=== PATIENT | female | born 1950 | race Caucasian/White ===

== ENCOUNTER 2018-08-06 10:24 | Day surgery (SDC) | payer MEDICARE, OTHER, SELFPAY ==
--- NOTE | 2018-08-06 | PATH_ITS ---
[facility] Accession Number: [id number] . 01 Material submitted: . DESCENDING COLON POLYP . 02 Diagnosis: Descending Colon, Polyp, Biopsy: Hyperplastic polyp. MRV/08/08/2018 . 02 Electronically signed: . Shira Pantoja MD, Pathologist NPI- [id number] . 01 Gross description: . Received one formalin-filled container labeled with the patient's name and labeled descending colon polyp. The specimen consists of a 0.5 cm portion of tissue. Entirely submitted in one cassette. [place] [id number] /[facility] . 02 Pathologist provided ICD-10: K63.5 . 02 CPT . 053862 Performed at: 01 [facility] [address] [id number] MD Surendra Lima MD Phone: [phone] Performed at: 02 [facility] [address] [place], [place] [id number] MD Shira Pantoja MD Phone: [phone]
[2018-08-06 10:44] VITALS: BP 151/84; PULSE 90; RESP 16; TEMP 37.3; O2SAT 100; BMI 22.9
[2018-08-06] MEDS: SODIUM CHLORIDE 0.9% 1,000 ML 42 ML IV (11:04)
--- NOTE | 2018-08-06 11:30 | PM.HP.1 ---
History of Present Illness Date Patient Seen: 08/06/18 Time Patient Seen: 11:30 Chief complaint: [id number] Colonoscopy Narrative: Screening for colorectal cancer Patient History Family & Social History Social History: household members friend(s) Meds Home Medications Medication Instructions Recorded Confirmed Type No Known Home Medications 08/06/18 08/06/18 History Allergies Allergy/AdvReac Type Severity Reaction Status Date / Time No Known Drug Allergies Allergy Verified 08/06/18 10:41 Exam Vital Signs (past 8 hours): - 08/06/18 10:44 Temperature 99.1 F Pulse Rate 90 Respiratory Rate 16 Blood Pressure 151/84 H Pulse Oximetry 100 Oxygen Delivery Method Room Air Narrative Exam Narrative: Oropharynx free of lesions Chest clear to auscultation percussion Cardiac exam reveals no S3 or murmur Assessment & Plan Plan: Assessment/Plan Narrative: Screening for colorectal cancer with colonoscopy. Last colonoscopy over 12 years ago. Risks, benefits, alternatives have been explained.
--- NOTE | 2018-08-06 11:31 | PM.OP.ENDO ---
Operative Date/Time/Diagnoses Date of procedure: 08/06/18 Time of procedure: 11:31 Pre-op diagnosis: See indication and findings Procedure & Clinicians Study performed: Colonoscopy Same procedure as scheduled: Yes Indications: Screening Surgeon: Deepak Burton Procedure Notes Procedure in detail: After informed consent was obtained the patient was placed in the left lateral decubitus position. The video colonoscope was introduced the rectum and slowly advanced to cecum. On slow withdrawal mucosa was carefully examined. The scope was removed. The patient tolerated the procedure well. Blood loss none Complications none Sedation Total sedation time 22 min Versed 9 mg fentanyl 150 mcg IV titration findings 1. 5 mm polyp in the descending colon Jumbo biopsy removed completely 2. scattered sigmoid diverticulosis 3. Otherwise negative colonoscopy to cecum This will almost certainly be an adenomatous polyp and she will need follow-up colonoscopy in 5 years. cc: Dr. Murphy
[2018-08-06] MEDS: fentaNYL 250 MCG/5 ML INJ IV (12:03)
[2018-08-06] MEDS: MIDAZOLAM 5 MG/5 ML VIAL IV (12:03)
[2018-08-06 12:07] VITALS: BP 121/79; PULSE 82; RESP 19; TEMP 36.5; O2SAT 98
[2018-08-06 12:12] VITALS: BP 111/66; PULSE 73; RESP 16; O2SAT 96
[2018-08-06 12:17] VITALS: BP 145/67; PULSE 86; RESP 13; TEMP 36.6; O2SAT 97
[2018-08-06 12:23] VITALS: BP 119/71; PULSE 78; RESP 15; TEMP 36.2; O2SAT 98
== END 2018-08-06 12:38 ==
LOC: ENDO 10:29
PROVIDERS: Family Provider Internal Medicine; PCP Internal Medicine; Visit Provider Internal Medicine Gastroenterology
PROC: 0DJD8ZZ Inspection of Lower Intestinal Tract, Via Natural or Artificial Opening Endoscopic (ICD-10-PCS; CPT 45378; principal; 2018-08-06 11:30)
DX: Z12.11 Encounter for screening for malignant neoplasm of colon (principal); K57.30 Diverticulosis of large intestine without perforation or abscess without bleeding; K63.5 Polyp of colon
CPT/HCPCS: 45380; 88305; J2250; J3010

== ENCOUNTER → 2019-01-27 11:39 | Outpatient (CLI) | payer MEDICARE, OTHER, SELFPAY ==
--- NOTE | 2019-01-27 | DI.MG.S_ITS ---
BILATERAL DIGITAL SCREENING MAMMOGRAM 3D/2D WITH CAD: 01/27/2019 CLINICAL: Routine screening. Comparison is made to exams dated: 11/11/2017 mammogram, 10/25/2016 mammogram, and 10/25/2015 mammogram - [facility]. The tissue of both breasts is heterogeneously dense. This may lower the sensitivity of mammography. Current study was also evaluated with a Computer Aided Detection (CAD) system. No significant masses, calcifications, or other findings are seen in either breast. There has been no significant interval change. IMPRESSION: NEGATIVE There is no mammographic evidence of malignancy. A 1 year screening mammogram is recommended. This exam was interpreted at Station ID: [id number]. NOTE: For mammograms, a report in lay terms will be sent to the patient. Approximately 15% of breast malignancies will not be visualized mammographically. In the management of a palpable breast mass, a negative mammogram must not discourage biopsy of a clinically suspicious lesion. Electronically Signed By: Evette epstein/jaden:01/27/2019 16:19:00 letter sent: Normal Exam ACR BI-RADS Category 1: Negative 3341F
== END ==
PROVIDERS: PCP Internal Medicine; Visit Provider Internal Medicine
DX: Z12.31 Encounter for screening mammogram for malignant neoplasm of breast (principal)
CPT/HCPCS: 77063; 77067

== ENCOUNTER → 2019-03-09 14:49 | Outpatient (CLI) | payer MEDICARE, OTHER, SELFPAY ==
--- NOTE | 2019-03-09 | DI.MRI.S_ITS ---
PROCEDURE: MR KNEE RT WO CON INDICATIONS: Right knee pain. Internal derangement TECHNIQUE: Noncontrast sagittal PD fast spin echo and T2 fast spin echo with fat saturation, sagittal 3-D FLASH with fat saturation; coronal T1 spin echo and PD fast spin echo with fat saturation, and axial PD fast spin echo with fat saturation through the knee. COMPARISON: None. FINDINGS: Image quality: Excellent. Menisci: Medial meniscus is intact. Linear horizontally oriented high T2 signal intensity traverses the lateral meniscal body and anterior horn. There is a para meniscal cyst laterally measuring 18 mm craniocaudal by 45 mm whitney-posterior. Cruciate ligaments: The anterior and posterior cruciate ligaments appear intact. Medial structures: The medial collateral ligament appears intact. Visualized portions of the pes anserinus tendons appear normal. No abnormal bursal fluid. Lateral structures: The lateral collateral ligament, long and short heads of the biceps femoris tendon appear intact. The popliteus tendon appears normal. Iliotibial band appears normal. Anterior structures: The quadriceps and patellar tendons appear intact. Patellar alignment is normal. No femoral trochlear dysplasia or ventral trochlear prominence. No edema in the infrapatellar fat pad. Bones and cartilage: No bone marrow contusions or fractures. Mild diffuse articular cartilage loss overlies the weightbearing aspects of the medial femoral condyle and medial tibial plateau. Articular cartilage fibrillation overlies the lateral patellar facet. Joint space: There is physiologic knee joint fluid. Small Hartley's cyst. Normal appearing synovial plicae are incidentally noted. IMPRESSION: 1. Lateral meniscal tear. 2. Medial and patellofemoral compartment articular cartilage loss. 3. Small Hartley's cyst. Dictated by: Lexie Mosher M.D. on 03/09/2019 at 16:19 Approved by: Lexie Mosher M.D. on 03/09/2019 at 16:22
== END ==
PROVIDERS: PCP Internal Medicine; Visit Provider Orthopaedic Surgery
DX: M25.561 Pain in right knee (principal); S83.281A Other tear of lateral meniscus, current injury, right knee, initial encounter; M71.21 Synovial cyst of popliteal space [Baker], right knee
CPT/HCPCS: 73721

== ENCOUNTER → 2020-03-03 11:08 | Outpatient (CLI) | payer MEDICARE, OTHER, SELFPAY ==
--- NOTE | 2020-03-03 | DI.MG.S_ITS ---
BILATERAL DIGITAL SCREENING MAMMOGRAM 3D/2D WITH CAD: 03/03/2020 CLINICAL: Routine screening. Comparison is made to exams dated: 01/27/2019 mammogram, 11/11/2017 mammogram, 10/25/2016 mammogram, 10/25/2015 mammogram, and 10/18/2014 mammogram - [facility]. The tissue of both breasts is heterogeneously dense. This may lower the sensitivity of mammography. Current study was also evaluated with a Computer Aided Detection (CAD) system. No significant masses, calcifications, or other findings are seen in either breast. There has been no significant interval change. IMPRESSION: NEGATIVE There is no mammographic evidence of malignancy. A 1 year screening mammogram is recommended. This exam was interpreted at Station ID: [id number]. NOTE: For mammograms, a report in lay terms will be sent to the patient. Approximately 15% of breast malignancies will not be visualized mammographically. In the management of a palpable breast mass, a negative mammogram must not discourage biopsy of a clinically suspicious lesion. Electronically Signed By: Rojas foote/jaden:03/03/2020 15:20:40 letter sent: Normal Exam ACR BI-RADS Category 1: Negative 3341F
== END ==
PROVIDERS: PCP Internal Medicine; Referring Provider Internal Medicine; Visit Provider Internal Medicine
DX: Z12.31 Encounter for screening mammogram for malignant neoplasm of breast (principal)
CPT/HCPCS: 77063; 77067

== ENCOUNTER → 2020-05-25 18:55 | Outpatient (ROUT) | payer MEDICARE, OTHER, SELFPAY ==
[2020-05-25 19:33] LABS: BUN Creatinine Ratio 23.5 (6-22); Blood Urea Nitrogen 12 mg/dL (7-17); Calcium 9.9 mg/dL (8.4-10.2); Carbon Dioxide 28 mmol/L (22-32); Chloride 103 mmol/L (98-107); Cholesterol 246 mg/dL (140-199); Estimated Glomerular Filt Rate > 60.0 mL/min (>60); Glucose 113 mg/dL (80-110); HDL Cholesterol 64 mg/dL (40-60); HEMOLYSIS < 15 (0-50); Potassium 3.9 mmol/L (3.4-5.1); Triglycerides 496 mg/dL (35-150)
[2020-05-25 19:41] LABS: Prolactin 15.5 ng/mL (3.0-18.6)
[2020-05-25 20:20] LABS: Sodium 139 mmol/L (137-145)
== END ==
PROVIDERS: PCP Internal Medicine; Visit Provider Internal Medicine
DX: R03.0 Elevated blood-pressure reading, without diagnosis of hypertension (principal); E78.2 Mixed hyperlipidemia
CPT/HCPCS: 80048; 80061; 84146

== ENCOUNTER → 2021-04-25 10:25 | Outpatient (ROUT) | payer MEDICARE, OTHER, SELFPAY ==
[2021-04-25 12:09] LABS: COVID19 -Nasal RAPID Negative (Negative)
== END ==
PROVIDERS: PCP Internal Medicine; Visit Provider Physician Assistant
DX: Z20.822 Contact with and (suspected) exposure to COVID-19 (principal)
CPT/HCPCS: 87635

== ENCOUNTER → 2021-07-04 11:12 | Outpatient (CLI) | payer MEDICARE, OTHER, SELFPAY ==
--- NOTE | 2021-07-04 | DI.MG.S_ITS ---
BILATERAL DIGITAL SCREENING MAMMOGRAM 3D/2D WITH CAD: 07/04/2021 CLINICAL: Routine screening. Comparison is made to exams dated: 03/03/2020 mammogram, 01/27/2019 mammogram, and 11/11/2017 mammogram - [facility]. There are scattered fibroglandular elements in both breasts. Current study was also evaluated with a Computer Aided Detection (CAD) system. No significant masses, calcifications, or other findings are seen in either breast. There has been no significant interval change. IMPRESSION: NEGATIVE There is no mammographic evidence of malignancy. A 1 year screening mammogram is recommended. This exam was interpreted at Station ID: [id number]. NOTE: For mammograms, a report in lay terms will be sent to the patient. Approximately 15% of breast malignancies will not be visualized mammographically. In the management of a palpable breast mass, a negative mammogram must not discourage biopsy of a clinically suspicious lesion. Electronically Signed By: Yolande steele/jaden:07/04/2021 12:29:38 letter sent: Normal Exam ACR BI-RADS Category 1: Negative 3341F
== END ==
PROVIDERS: PCP Internal Medicine; Referring Provider Internal Medicine; Visit Provider Internal Medicine
DX: Z12.31 Encounter for screening mammogram for malignant neoplasm of breast (principal)
CPT/HCPCS: 77063; 77067

== ENCOUNTER → 2022-04-10 07:07 | Outpatient (CLI) | payer MEDICARE, OTHER, SELFPAY ==
[2022-04-10 08:41] LABS: Hematocrit 40.8 % (36-46); Hemoglobin 14.5 g/dL (12.0-16.0); Mean Corpuscular HGB Conc 35.5 % (30-36); Mean Corpuscular Hemoglobin 32.2 PG (26-34); Mean Corpuscular Volume 90.6 fL (80-100); Platelet Count 247 X10^3/uL (150-400); Red Blood Cell Count 4.51 X10^6/uL (4.0-5.2); Red Cell Distribution Width 13.2 % (11.6-14.8); White Blood Cell Count 6.2 X10^3/uL (4.5-11.0)
[2022-04-10 09:25] LABS: Alanine Aminotransferase 33 IU/L (<35); Albumin 4.7 g/dL (3.5-5.0); Albumin Globulin Ratio 1.8 (1.0-2.8); Alkaline Phosphatase 80 U/L (38-126); Aspartate Aminotransferase 31 IU/L (14-36); BUN Creatinine Ratio 22.7 (6-22); Bilirubin Total 0.6 mg/dL (0.2-1.3); Blood Urea Nitrogen 17 mg/dL (7-17); Calcium 9.6 mg/dL (8.4-10.2); Carbon Dioxide 27 mmol/L (22-32); Chloride 103 mmol/L (98-107); Cholesterol 241 mg/dL (140-199); Estimated Glomerular Filt Rate > 60 mL/min (>60); Globulin 2.6 g/dL (1.7-4.1); Glucose 113 mg/dL (80-110); HDL Cholesterol 68 mg/dL (40-60); HEMOLYSIS < 15 (0-50); LDL Cholesterol Calculated 153 mg/dL (<100); Potassium 4.2 mmol/L (3.4-5.1); Sodium 139 mmol/L (137-145); Total Protein 7.3 g/dL (6.3-8.2); Triglycerides 101 mg/dL (35-150)
[2022-04-10 09:36] LABS: Prolactin 18.6 ng/mL (3.0-18.6)
[2022-04-10 09:47] LABS: TSH w/ Reflex to FT4 3.66 uIU/mL (0.47-4.68)
== END ==
PROVIDERS: PCP Internal Medicine; Referring Provider Internal Medicine; Visit Provider Internal Medicine
DX: E78.2 Mixed hyperlipidemia (principal); I10 Essential (primary) hypertension; D35.2 Benign neoplasm of pituitary gland
CPT/HCPCS: 36415; 80053; 80061; 84146; 84443; 85027

== ENCOUNTER → 2022-05-07 12:41 | Outpatient (CLI) | payer MEDICARE, OTHER, SELFPAY ==
--- NOTE | 2022-05-07 12:48 | DI.RAD.S_ITS ---
PROCEDURE: XR DEXA AXIAL SKELETON INDICATIONS: Menopausal and female climacteric states COMPARISON: [facility], , DEXA AXIAL SKELETON, 10/18/2014, 13:23. FINDINGS: This blank DEXA report has been sent in error by the PACS system. The correct and complete report will be forthcoming in 1-2 days. Thank you for your patience and understanding. Dictated by: Tray Godinez M.D. on 05/07/2022 at 15:55 Approved by: Tray Godinez M.D. on 05/07/2022 at 15:55
== END ==
PROVIDERS: PCP Internal Medicine; Referring Provider Internal Medicine; Visit Provider Internal Medicine
DX: Z78.0 Asymptomatic menopausal state (principal); Z13.820 Encounter for screening for osteoporosis
CPT/HCPCS: 77080

== ENCOUNTER → 2022-07-19 12:37 | Outpatient (CLI) | payer MEDICARE, OTHER, SELFPAY ==
--- NOTE | 2022-07-19 12:39 | DI.MG.S_ITS ---
BILATERAL DIGITAL SCREENING MAMMOGRAM 3D/2D WITH CAD: 07/19/2022 CLINICAL: Routine screening. Comparison is made to exams dated: 07/04/2021 mammogram, 03/03/2020 mammogram, and 01/27/2019 mammogram - [facility]. There are scattered areas of fibroglandular density in both breasts (category b / 25%-50% glandular tissue). Current study was also evaluated with a Computer Aided Detection (CAD) system. No significant masses, calcifications, or other findings are seen in either breast. There has been no significant interval change. IMPRESSION: NEGATIVE There is no mammographic evidence of malignancy. A 1 year screening mammogram is recommended. Based on the Tyrer Cuzick model (a risk assessment model) the patient's lifetime risk is 4.3% and her 10 year risk is 2.7%. According to the ACR, ACS, and NCCN guidelines, an annual breast MRI exam along with mammogram is recommended if the patient's lifetime risk is 20% or greater. This exam was interpreted at Station ID: [id number]. NOTE: For mammograms, a report in lay terms will be sent to the patient. Approximately 15% of breast malignancies will not be visualized mammographically. In the management of a palpable breast mass, a negative mammogram must not discourage biopsy of a clinically suspicious lesion. Electronically Signed By: Tray Godinez M.D., jr/jaden:07/19/2022 13:06:01 letter sent: Normal Exam ACR BI-RADS Category 1: Negative 3341F
== END ==
PROVIDERS: PCP Internal Medicine; Referring Provider Internal Medicine; Visit Provider Internal Medicine
DX: Z12.31 Encounter for screening mammogram for malignant neoplasm of breast (principal)
CPT/HCPCS: 77063; 77067

== ENCOUNTER → 2023-05-01 11:14 | Outpatient (CLI) | payer MEDICARE, OTHER, SELFPAY ==
[2023-05-01 13:14] LABS: Aspartate Aminotransferase 34 IU/L (14-36); Blood Urea Nitrogen 13 mg/dL (7-17); Calcium 10.6 mg/dL (8.4-10.2); Carbon Dioxide 27 mmol/L (22-32); Chloride 102 mmol/L (98-107); Cholesterol 187 mg/dL (140-199); Estimated Glomerular Filt Rate > 60 mL/min (>60); Glucose 97 mg/dL (80-110); HDL Cholesterol 88 mg/dL (40-60); HEMOLYSIS < 15 (0-50); LDL Cholesterol Calculated 72 mg/dL (<100); Potassium 4.4 mmol/L (3.4-5.1); Sodium 138 mmol/L (137-145); Triglycerides 133 mg/dL (35-150)
== END ==
PROVIDERS: PCP Internal Medicine; Referring Provider Internal Medicine; Visit Provider Internal Medicine
DX: E78.2 Mixed hyperlipidemia (principal); N95.1 Menopausal and female climacteric states
CPT/HCPCS: 36415; 80048; 80061; 84450

== ENCOUNTER → 2023-07-26 13:10 | Outpatient (CLI) | payer MEDICARE, OTHER, SELFPAY ==
--- NOTE | 2023-07-26 13:13 | DI.MG.S_ITS ---
BILATERAL DIGITAL SCREENING MAMMOGRAM 3D/2D WITH CAD: 07/26/2023 CLINICAL: Routine screening. Comparison is made to exams dated: 07/19/2022 mammogram, 07/04/2021 mammogram, and 03/03/2020 mammogram - [facility]. Both breasts are heterogeneously dense, which may obscure small masses (category c / 51-75% glandular tissue). Current study was also evaluated with a Computer Aided Detection (CAD) system. No significant masses, calcifications, or other findings are seen in either breast. There has been no significant interval change. IMPRESSION: NEGATIVE There is no mammographic evidence of malignancy. A 1 year screening mammogram is recommended. Based on the Tyrer Cuzick model (a risk assessment model) the patient's lifetime risk is 6.2% and her 10 year risk is 4.2%. According to the ACR, ACS, and NCCN guidelines, an annual breast MRI exam along with mammogram is recommended if the patient's lifetime risk is 20% or greater. This exam was interpreted at Station ID: [id number]. NOTE: For mammograms, a report in lay terms will be sent to the patient. Approximately 15% of breast malignancies will not be visualized mammographically. In the management of a palpable breast mass, a negative mammogram must not discourage biopsy of a clinically suspicious lesion. Electronically Signed By: Lamine pike/jaden:07/26/2023 13:34:59 letter sent: Normal Exam ACR BI-RADS Category 1: Negative 3341F
== END ==
PROVIDERS: Referring Provider Internal Medicine; Visit Provider Internal Medicine
DX: Z12.31 Encounter for screening mammogram for malignant neoplasm of breast (principal)
CPT/HCPCS: 77063; 77067

== ENCOUNTER 2023-08-13 08:56 | Day surgery (SDC) | payer MEDICARE, OTHER, SELFPAY ==
--- NOTE | 2023-08-13 | PATH_ITS ---
[facility] Accession Number: [id number] No. of containers..02 Tissue . 01 Material submitted: . PART A: colon - SIGMOID PART B: colon - CECAL POLYP . 01 Diagnosis: A. Sigmoid Colon, Biopsy: Tubular adenoma, three fragments. . B. Cecum, Polyp: Tubular adenoma in three of four fragments. MRV 08/16/2023 1400 Local . 01 Electronically signed: . Shira Pantoja MD, Pathologist NPI- [id number] . 01 Gross description: . Part A: SIGMOID: Received in formalin are 3 fragment(s) of bunch, soft tissue measuring 0.3 x 0.3 x 0.3 cm to 0.4 x 0.4 x 0.4 cm submitted entirely in 1 cassette(s) Part B: CECAL POLYP: Received in formalin are 4 fragment(s) of bunch, soft tissue measuring 0.3 x 0.2 x 0.2 cm to 0.6 x 0.4 x 0.2 cm submitted entirely in 1 cassette(s) /BING 08/14/2023 1838 Local . 01 Pathologist provided ICD-10: D12.5, D12.0 . 01 CPT . 798469, [id number] Performed at: 01 [facility] [address], [place], [place] [id number] MD Surendra Lima MD Phone: [phone]
[2023-08-13 09:13] VITALS: BMI 24.4
[2023-08-13 09:17] VITALS: BP 169/77; PULSE 103; RESP 16; TEMP 36.7; O2SAT 100
[2023-08-13] MEDS: LACTATED RINGERS 1,000 ML 42 ML IV (09:20)
--- NOTE | 2023-08-13 10:03 | PM.HP.1 ---
History of Present Illness History of Present Illness Date Patient Seen: 08/13/23 Time Patient Seen: 10:03 Chief complaint: Screening Colonoscopy Narrative: 73-year-old woman here for screening colonoscopy. Personal history of colonic polyps last colonoscopy 2018. No family history of intestinal malignancy. No abdominal concerns today. COUNT INCLUDES THE [facility] Medical History History of colonic polyps Essential hypertension Menopausal syndrome Mixed hyperlipidemia Rosacea Cataracts, bilateral Pituitary adenoma Surgical History Anesthesia History of appendectomy (~1979) History of knee surgery (~04/16/19) Status post Mohs surgery (~05/29/21) Family History Father Cancer Mother Diabetes mellitus Hypertension Hyperlipidemia Sister Lung cancer Hypertension Sister Multiple sclerosis Social History household members: friend(s) Smoking Status: Never smoker Meds Home Medications and Allergies Home Medications Medication Instructions Recorded Confirmed Type amlodipine 5 mg tablet 5 mg PO DAILY #90 tabs 04/22/23 08/13/23 Rx rosuvastatin 10 mg tablet 10 mg PO DAILY #90 tabs 04/22/23 08/13/23 Rx Allergies Allergy/AdvReac Type Severity Reaction Status Date / Time No Known Drug Allergies Allergy Verified 05/01/23 09:58 Exam Vital Signs (past 8 hours): - 08/13/23 09:17 Temperature 98.0 F Pulse Rate 103 H Respiratory Rate 16 Blood Pressure 169/77 H Pulse Oximetry 100 Oxygen Delivery Method Room Air Oxygen Delivery Method Room Air Narrative Exam Narrative: General adult woman alert oriented no acute distress Chest nonlabored respiration Extremities warm well perfused Assessment & Plan Assessment & Plan narrative: The patient requires colorectal screening and colonoscopy is recommended. Technical details were discussed. Risks, benefits, alternatives explained. Risks including but not limited to myocardial infarction, aspiration, bleeding, pain, missed lesion, incomplete examination, need for further radiographic studies, colonic perforation, and need for major abdominal surgery were discussed. All questions were answered to their satisfaction, and they are in agreement with this plan.
[2023-08-13 10:37] VITALS: BP 119/48; PULSE 87; RESP 13; TEMP 36.3; O2SAT 98
--- NOTE | 2023-08-13 10:38 | P.OP.COLON_ITS ---
Operative Date/Time/Diagnoses Date of procedure: 08/13/23 Time of procedure: 10:39 Pre-op diagnosis: Colorectal screening Post-op diagnosis: other (Colonic polyps x2) Procedure & Clinicians Study performed: Colonoscopy and polypectomy Same procedure as scheduled: Yes Indications: Colorectal screening Surgeon: Carlton Dawn Procedure Notes Procedure in detail: The history and physical was performed/updated and the patient is ASA class is 2. The procedure was discussed in detail with the patient. Potential risks complications including infection, bleeding, missed diagnosis, perforation, need for surgery, and were explained. Their questions were answered and informed consent was obtained. Patient was brought to the procedure room and placed standard monitoring equipment. The patient's vital signs were monitored continuously throughout the entire procedure. Prior to starting time-out was performed. The patient was placed in the left lateral recumbent position. Procedural sedation was administered by anesthesia. Examination began with a thorough inspection of the perianal area there was no evidence of fissures, fistulae, external hemorrhoids or cutaneous malignancy. The colonoscopy scope was then placed into the anal canal and was advanced to the cecum, which was identified by the ileocecal valve, the appendiceal orifice and the confluence of the taenia. The scope was then slowly withdrawn examining colon thoroughly in all directions, irrigating it of any residual stool. The scope was retroflexed within the rectum The patient tolerated the procedure well. They will be discharged once criteria are met. The prep was of good/excellent quality. The withdrawl time was 7 minutes. FINDINGS * Cecal polyp 5 mm removed with cold snare * Sigmoid polyp 5 mm removed with cold snare * Internal hemorrhoids Specimen(s): other (Cecal and sigmoid colonic polyps) Impression: Colonic polyps x2 Post-procedure Plan for aftercare: Follow-up is dependent on pathology findings Disposition: same day surgery
[2023-08-13 10:41] VITALS: BP 129/103; PULSE 77; RESP 16; O2SAT 97
[2023-08-13 10:47] VITALS: BP 108/52; PULSE 76; RESP 14; TEMP 36.4; O2SAT 98
[2023-08-13 10:52] VITALS: BP 110/82; PULSE 80; RESP 19; TEMP 36.3; O2SAT 98
[2023-08-13 11:01] VITALS: BP 131/68; PULSE 84; RESP 19; O2SAT 92
== END 2023-08-13 11:04 | disposition home or self-care (01) ==
PROVIDERS: PCP Internal Medicine; Referring Provider Surgery; Visit Provider Surgery
PROC: 0DJD8ZZ Inspection of Lower Intestinal Tract, Via Natural or Artificial Opening Endoscopic (ICD-10-PCS; CPT 45378; principal; 2023-08-13 10:00)
DX: Z12.11 Encounter for screening for malignant neoplasm of colon (principal); K64.8 Other hemorrhoids; Z86.010 Personal history of colon polyps; D12.0 Benign neoplasm of cecum; D12.5 Benign neoplasm of sigmoid colon
CPT/HCPCS: 45385; J2704

== ENCOUNTER → 2024-03-18 07:01 | Outpatient (CLI) | payer MEDICARE, OTHER, SELFPAY ==
[2024-03-18 08:37] LABS: Aspartate Aminotransferase 32 IU/L (14-36); BUN Creatinine Ratio 27.3 (6-22); Blood Urea Nitrogen 18 mg/dL (7-17); Calcium 10.3 mg/dL (8.4-10.2); Carbon Dioxide 25 mmol/L (22-32); Chloride 105 mmol/L (98-107); Cholesterol 161 mg/dL (140-199); Estimated Glomerular Filt Rate > 60 mL/min (>60); Glucose 111 mg/dL (80-110); HDL Cholesterol 84 mg/dL (40-60); HEMOLYSIS < 15 (0-50); LDL Cholesterol Calculated 56 mg/dL (<100); Potassium 4.9 mmol/L (3.4-5.1); Sodium 140 mmol/L (137-145); Triglycerides 104 mg/dL (35-150)
== END ==
PROVIDERS: PCP Internal Medicine; Referring Provider Internal Medicine; Visit Provider Internal Medicine
DX: I10 Essential (primary) hypertension (principal); E78.2 Mixed hyperlipidemia
CPT/HCPCS: 36415; 80048; 80061; 84450

== ENCOUNTER → 2024-08-11 09:53 | Outpatient (CLI) | payer MEDICARE, OTHER, SELFPAY ==
--- NOTE | 2024-08-11 09:54 | DI.MG.S_ITS ---
BILATERAL DIGITAL SCREENING MAMMOGRAM 3D/2D WITH CAD: 08/11/2024 CLINICAL: Routine screening. Comparison is made to exams dated: 07/26/2023 mammogram, 07/19/2022 mammogram, and 07/04/2021 mammogram - [facility]. The breasts are heterogeneously dense, which may obscure small masses (category c / 51-75% glandular tissue). Current study was also evaluated with a Computer Aided Detection (CAD) system. No significant masses, calcifications, or other findings are seen in either breast. There has been no significant interval change. IMPRESSION: NEGATIVE There is no mammographic evidence of malignancy. A 1 year screening mammogram is recommended. Based on the Tyrer Cuzick model (a risk assessment model) the patient's lifetime risk is 5.8% and her 10 year risk is 4.4%. According to the ACR, ACS, and NCCN guidelines, an annual breast MRI exam along with mammogram is recommended if the patient's lifetime risk is 20% or greater. This exam was interpreted at Station ID: [id number]. NOTE: For mammograms, a report in lay terms will be sent to the patient. Approximately 15% of breast malignancies will not be visualized mammographically. In the management of a palpable breast mass, a negative mammogram must not discourage biopsy of a clinically suspicious lesion. Electronically Signed By: Lamine pike/jaden:08/11/2024 13:58:16 letter sent: Normal Exam ACR BI-RADS Category 1: Negative
== END ==
PROVIDERS: PCP Internal Medicine; Referring Provider Internal Medicine; Visit Provider Internal Medicine
DX: Z12.31 Encounter for screening mammogram for malignant neoplasm of breast (principal); R92.333 Mammographic heterogeneous density, bilateral breasts
CPT/HCPCS: 77063; 77067